=== PATIENT | female | born 1985 | race Caucasian/White ===

== ENCOUNTER 2018-03-26 07:34 | Day surgery (SDC) | payer BC ==
[2018-03-24 15:37] LABS: Absolute Lymphocytes (CBC) 2.1 K/uL (0.7-4.9); Absolute Monocytes 0.5 K/uL (0.1-1.3); Absolute Neutrophil 4.9 K/uL (1.8-8.0); Basophils % 0.5 % (0-1.3); Eosinophils % 1.6 % (0-4.4); Hematocrit 39.3 % (36.0-45.0); Lymphocytes % 27.2 % (15.3-44.8); MCH 28.4 pg (27.0-35.0); MCV 85.4 fL (80-100); MPV 7.8 fL (7.6-11.3); Monocytes % 6.5 % (3.3-12.3)
[2018-03-24 15:52] LABS: BUN Blood Urea Nitrogen 13 mg/dL (7-18); Bicarbonate 24 mmol/L (21-32); Glucose Level 82 mg/dL (74-106); Potassium 4.3 mmol/L (3.5-5.1); Sodium Level 141 mmol/L (136-145)
[2018-03-26] MEDS ORDERED: GLYCOPYRROLATE 0.2 MG/ML SYR ONE (07:46)
[2018-03-26] MEDS ORDERED: MIDAZOLAM HCL 2 MG/2 ML INJ ONE (07:46)
[2018-03-26] MEDS ORDERED: PROPOFOL 200 MG/20 ML VIAL IV ONE (07:46)
[2018-03-26] MEDS ORDERED: LIDOCAINE 2% MPF 5 ML VIAL ONE (07:46)
[2018-03-26] MEDS ORDERED: FENTANYL CITR 250 MCG/5 ML ONE (07:47)
[2018-03-26] MEDS ORDERED: ROCURONIUM 50 MG/5 ML VIAL IV ONE (07:48)
[2018-03-26 07:56] LABS: Specific Gravity >= 1.030 (1.005-1.030)
[2018-03-26] MEDS ORDERED: CEFOXITIN/SWI 1gm 1 GM/10 ML SYR ONE (08:09)
[2018-03-26] MEDS ORDERED: Ringers Lactate 1,000 ML IV ONE (08:09)
[2018-03-26] MEDS: BUPIVACAINE 0.25% PF 10 ML VIAL ONE ×2 (08:42→09:24)
[2018-03-26] MEDS ORDERED: BUPIVACAINE 0.5% PF 10 ML VIAL ONE (08:44)
[2018-03-26] MEDS: MEPERIDINE HCL 50 MG/ML AMP ONE ×2 (10:16→10:24)
[2018-03-26] MEDS ORDERED: MEPERIDINE HCL 50 MG/ML AMP ONE (10:40)
[2018-03-26] MEDS ORDERED: HYDROCODONE/APAP 7.5/325 MG TAB ONE (11:18)
--- NOTE | 2018-03-26 16:25 | DS ---
Date of Discharge: 03/26/2018 Discharge Note: The patient will go to Day Surgery and home when stable. Disposition: Home. Condition: Stable. Discharge Instructions: Resume home medications and diet. Activity as tolerated. No heavy lifting. Remove outer dressing in 2 days. Shower. Keep wound clean and dry. Keep Steri-Strips on at all t imes. Follow up in 1 week. Call for appointment. Tylenol No. 3 one tablet p.o. q.4 p.r.n. pain. /MODL Voice ID: [id number] Report ID: [id number]
--- NOTE | 2018-03-26 16:25 | OP ---
Date of Procedure: 03/26/2018 Surgeon: Freedom Chanel MD Sill Worker: YVONNE Duffy. Preoperative Diagnoses: Chronic cholecystitis and biliary dyskinesia. Postoperative Diagnoses: Chronic cholecystitis and biliary dyskinesia. Procedure: Laparoscopic cholecystectomy. Estimated Blood Loss: Minimal. Specimen: Gallbladder. Finding: As above. Anesthesia: General. Complications: None. Disposition: The patient tolerated the procedure in stable condition, taken to Recovery in good gene ral condition. Procedure In Detail: The patient was brought to the OR and placed in supine position. General anest hesia begun. The patient was prepped and draped in usual sterile fashion. Marcaine 0.5% was infiltr ated locally. A 15-blade was used to make a 1 cm supraumbilical midline incision. Subcutaneous tiss ue divided. Fascia was identified and divided. A #1 Vicryl stay suture was placed. Peritoneal cavi ty was entered with a sharp and blunt dissection. A 12 mm trocar was placed into the peritoneal cavi ty under direct vision. Pneumoperitoneum was established and then three 5-mm trocars were placed, 1 in the epigastrium just to the right of midline and 2 in the right subcostal region. Laparoscopy rev ealed chronic inflammation of the gallbladder. Fundus retracted superiorly. Infundibulum was identi fied and retracted inferolaterally. Cystic duct and cystic artery were clearly identified with blunt dissection. Clips placed. Both structures were divided. Cautery was used to remove the gallbladde r from the liver bed. Bleeding on the liver bed was controlled with cautery. The gallbladder was re trieved through the umbilicus via an EndoCatch bag. Right upper quadrant examined. No evidence of b leeding or bile leakage appreciated. Subsequently, all trocars were removed under direct vision. St ay sutures were tied to each other to reapproximate the fascial defect. The subcutaneous wounds were irrigated. Bleeding controlled with cautery. 3-0 chromic used to approximate the subcutaneous tiss ue and close the skin. Sterile dressing was applied. The patient was awakened and taken to Recovery in good general condition. /MODL Voice ID: [id number] Report ID: [id number]
== END 2018-03-26 11:59 | disposition home or self-care (01) ==
LOC: OR 07:34
PROVIDERS: ATTEND Surgery
PROC: 0FT44ZZ Resection of Gallbladder, Percutaneous Endoscopic Approach (ICD-10-PCS; principal; 2018-03-26 09:00)
DX: K81.1 Chronic cholecystitis (principal); K82.8 Other specified diseases of gallbladder; Z91.048 Other nonmedicinal substance allergy status
CPT/HCPCS: 36415; 80048; 81025; 85025; 88304; J2175; J2250

== ENCOUNTER 2023-08-06 06:24 | Day surgery (SDC) | payer BC, OTHER ==
[2023-08-06] MEDS: Ringers Lactate 1,000 ML IV ONE (06:55)
[2023-08-06] MEDS ORDERED: propofoL 200 MG/20 ML VIAL IV ONE (07:22)
[2023-08-06] MEDS ORDERED: LIDOCAINE 1% MPF 5 ML VIAL ONE (07:22)
[2023-08-06 09:52] VITALS: BP 97/66; TEMP 97.1; O2SAT 100
== END 2023-08-06 09:21 | disposition home or self-care (01) ==
LOC: OR 06:24
PROVIDERS: ATTEND Internal Medicine Gastroenterology
PROC: 0DB68ZX Excision of Stomach, Via Natural or Artificial Opening Endoscopic, Diagnostic (ICD-10-PCS; 2023-08-06)
PROC: 0DB88ZX Excision of Small Intestine, Via Natural or Artificial Opening Endoscopic, Diagnostic (ICD-10-PCS; 2023-08-06)
PROC: 0DB78ZX Excision of Stomach, Pylorus, Via Natural or Artificial Opening Endoscopic, Diagnostic (ICD-10-PCS; 2023-08-06)
PROC: 0DBN8ZX Excision of Sigmoid Colon, Via Natural or Artificial Opening Endoscopic, Diagnostic (ICD-10-PCS; principal; 2023-08-06 07:30)
PROC: 0DBL8ZX Excision of Transverse Colon, Via Natural or Artificial Opening Endoscopic, Diagnostic (ICD-10-PCS; 2023-08-06 07:30)
DX: Z12.11 Encounter for screening for malignant neoplasm of colon (principal); R11.2 Nausea with vomiting, unspecified; K64.8 Other hemorrhoids; K21.9 Gastro-esophageal reflux disease without esophagitis; K29.50 Unspecified chronic gastritis without bleeding; R19.7 Diarrhea, unspecified; D12.3 Benign neoplasm of transverse colon
CPT/HCPCS: 45385; 43239; 88304; J2704; J2001; J7120; 88305; 88312

== ENCOUNTER 2023-12-02 20:39 | Emergency (ER) | payer OTHER ==
[2023-12-02] MEDS ORDERED: ONDANSETRON 4 MG/2 ML VIAL ONE (22:04)
[2023-12-02] MEDS ORDERED: NA CHLORIDE 0.9% 1,000 ML ONE (22:05)
[2023-12-02] MEDS ORDERED: MORPHINE 4 MG/ML SYR ONE (22:05)
[2023-12-02] MEDS ORDERED: FAMOTIDINE 20 MG/2 ML VIAL IV ONE (22:05)
[2023-12-02 22:17] LABS: Absolute Eosinophils 0.1 K/uL (0-0.5); Absolute Lymphocytes (CBC) 2.1 K/uL (0.7-4.9); Absolute Monocytes 0.5 K/uL (0.1-1.3); Absolute Neutrophil 5.2 K/uL (1.8-8.0); Basophils % 0.6 % (0-1.3); Eosinophils % 1.4 % (0-4.4); Hematocrit 40.5 % (36.0-45.0); Hemoglobin 13.5 g/dL (12.0-15.0); Lymphocytes % 26.6 % (15.3-44.8); MCH 29.1 pg (27.0-35.0); MCHC 33.4 g/dL (32.0-36.0); MCV 87.1 fL (80-100); MPV 7.2 fL (7.6-11.3); Monocytes % 6.1 % (3.3-12.3); Neutrophils % 65.3 % (41.7-73.7); Platelets 358 thou/uL (152-406); RBC Red Blood Cell Count 4.64 M/uL (3.86-4.86); Red Cell Distribution Width 14.4 % (12.1-15.2)
[2023-12-02 22:38] LABS: Albumin 4.2 g/dL (3.4-5.0); Albumin/Globulin Ratio 1.3 (1.1-1.8); Anion Gap 7.6 mEq/L (5.0-15.0); Bilirubin Total 1.1 mg/dL (0.2-1.0); Globulin 3.3 g/dL (2.3-3.5); Potassium 3.6 mEq/L (3.5-5.1); Protein, Total 7.5 g/dL (6.4-8.2)
[2023-12-03 00:36] LABS: Specific Gravity 1.007 (1.005-1.030); Urine Bilirubin NEGATIVE (Negative); Urine Blood Negative (Negative); Urine Clarity Clear (Clear); Urine Color Colorless (Yellow); Urine Glucose NEGATIVE (Negative); Urine Ketones NEGATIVE (Negative); Urine Microscopic Reflex YN NO UMIC; Urine Nitrite NEGATIVE (Negative); Urine Protein NEGATIVE (Negative); Urine Urobilinogen Normal (Normal); Urine pH 5.5 (5.0-7.0)
--- NOTE | 2023-12-03 01:27 | ER ---
Nurse's Notes [facility] Name: Miranda Snell Age: 38 yrs Sex: Female : 1985 Arrival Date: 12/02/2023 Time: 20:39 Bed 20 Private MD: Diagnosis: Epigastric pain;Nausea Presentation: 12/01 21:16 Chief complaint: Patient states: Pt c/o nausea and diffuse abdominal pain that radiates tl4 into her left flank after eating tater tots at noon. Pt states pain is getting worse. Coronavirus screen: At this time, the client does not indicate any symptoms associated with coronavirus-19. Ebola Screen: No symptoms or risks identified at this time. Initial Sepsis Screen: Does the patient meet any 2 criteria? No. Patient's initial sepsis screen is negative. Does the patient have a suspected source of infection? No. Patient's initial sepsis screen is negative. Risk Assessment: Do you want to hurt yourself or someone else? Patient reports no desire to harm self or others. Onset of symptoms was December 02, 2023 at 12:00. 21:16 Method Of Arrival: Ambulatory tl4 21:16 Acuity: KAMI 3 tl4 Triage Assessment: 21:19 General: Appears uncomfortable, ill, Behavior is cooperative. Pain: Complains of pain tl4 in back and abdomen. EENT: No signs and/or symptoms were reported regarding the EENT system. Neuro: Level of Consciousness is awake, alert, obeys commands, Oriented to person, place, time, situation. Cardiovascular: Capillary refill < 3 seconds Patient's skin is warm and dry. Respiratory: Airway is patent Respiratory effort is even, unlabored, Respiratory pattern is regular, symmetrical, Breath sounds are clear bilaterally. GI: Reports lower abdominal pain, upper abdominal pain, nausea. : No signs and/or symptoms were reported regarding the genitourinary system. Derm: No signs and/or symptoms reported regarding the dermatologic system. Musculoskeletal: No signs and/or symptoms reported regarding the musculoskeletal system. Historical: - Allergies: 21:18 No Known Allergies; tl4 - Home Meds: 21:18 [place] Thyroid Oral [Active]; tl4 - PMHx: 21:18 Hypothyroidism; tl4 - Immunization history:: Adult Immunizations unknown. - Infectious Disease History:: Denies. - Social history:: Smoking status: Patient denies any tobacco usage or history of. Screenin/03 00:30 [facility] ED Fall Risk Assessment (Adult) History of falling in the last 3 months, jb4 including since admission No falls in past 3 months (0 pts) Confusion or Disorientation No (0 pts) Intoxicated or Sedated No (0 pts) Impaired Gait No (0 pts) Mobility Assist Device Used No (0 pt) Altered Elimination No (0 pt) Score/Fall Risk Level 0 - 2 = Low Risk Oriented to surroundings, Maintained a safe environment. Abuse screen: Denies threats or abuse. Nutritional screening: No deficits noted. Tuberculosis screening: No symptoms or risk factors identified. Assessment: 12/01 21:30 General: Appears in no apparent distress. uncomfortable, Behavior is calm, cooperative, jb4 appropriate for age. Pain: Complains of pain in right upper quadrant and left upper quadrant Pain does not radiate. Pain currently is 9 out of 10 on a pain scale. Neuro: Level of Consciousness is awake, alert, obeys commands, Oriented to person, place, time, situation. Cardiovascular: Patient's skin is warm and dry. Respiratory: Airway is patent Respiratory effort is even, unlabored, Respiratory pattern is regular, symmetrical. GI: Abdomen is flat, non-distended, Reports upper abdominal pain, nausea. : No signs and/or symptoms were reported regarding the genitourinary system. EENT: No signs and/or symptoms were reported regarding the EENT system. Derm: Skin is intact, Skin is pink, warm \T\ dry. 22:41 Reassessment: Patient appears in no apparent distress at this time. Patient and/or jb4 family updated on plan of care and expected duration. Pain level reassessed. Patient is alert, oriented x 3, equal unlabored respirations, skin warm/dry/pink. 12/02 00:00 Reassessment: Patient appears in no apparent distress at this time. Patient and/or jb4 family updated on plan of care and expected duration. Pain level reassessed. Patient is alert, oriented x 3, equal unlabored respirations, skin warm/dry/pink. 01:00 Reassessment: Patient appears in no apparent distress at this time. Patient and/or jb4 family updated on plan of care and expected duration. Pain level reassessed. Patient is alert, oriented x 3, equal unlabored respirations, skin warm/dry/pink. 02:03 Reassessment: Patient appears in no apparent distress at this time. Patient and/or jb4 family updated on plan of care and expected duration. Pain level reassessed. Patient is alert, oriented x 3, equal unlabored respirations, skin warm/dry/pink. Vital Signs: 12/01 21:16 BP 125 / 72; Pulse 75; Resp 16; Temp 99.1; Pulse Ox 100% on R/A; Weight 77.11 kg; tl4 Height 5 ft. 6 in. ; Pain 9/10; 12/02 00:30 BP 97 / 58; Pulse 67; Resp 16; Pulse Ox 100% on R/A; jb4 01:30 BP 111 / 68; Pulse 67; Resp 16; Pulse Ox 100% on R/A; jb4 12/01 21:16 Body Mass Index 27.44 (77.11 kg, 167.64 cm) tl4 12/01 21:16 Pain Scale: Adult tl4 ED Course: 12/01 20:42 Patient arrived in ED. mr 20:49 Chino Delgado PA is PHCP. cp 20:49 Satnam Louis MD is Attending Physician. cp 21:18 Triage completed. tl4 21:20 Arm band placed on right wrist. tl4 22:00 Initial lab(s) drawn, by dc, sent to lab. Inserted saline lock: 20 gauge in right jb4 antecubital area, using aseptic technique. Blood collected. 22:16 Vikas Marcial, RN is Primary Nurse. jb4 22:59 XRAY Chest (1 view) In Process Unspecified. EDMS 12/02 00:31 CT Abd/Pelvis - IV Contrast Only In Process Unspecified. EDMS 01:25 Wesly Pena MD is Referral Physician. cp 02:05 Patient has correct armband on for positive identification. Bed in low position. Call jb4 light in reach. Side rails up X 1. Provided Education on: discharge instructions. 02:05 No provider procedures requiring assistance completed. IV discontinued, intact, jb4 bleeding controlled, No redness/swelling at site. Pressure dressing applied. Administered Medications: 12/01 22:20 Drug: Ondansetron IVP 4 mg IVP once; over 2 minutes Route: IVP; Site: right antecubital;jb4 22:20 Drug: Famotidine IVP 20 mg IVP once; dilute with 10 mL 0.9% NaCl; give over 2 minutes jb4 Route: IVP; Site: right antecubital; 22:20 Drug: morphine IVP or IV 4 mg IVP once over 4 mins Route: IVP; Infused Over: 4 mins; jb4 Site: right antecubital; 22:20 Drug: NS 0.9% IV 1000 ml IV at 1 bolus Per protocol; 1000 mL bolus Route: IV; Rate: 1 jb4 bolus; Site: right antecubital; 12/02 02:02 Drug: GI Cocktail without - (Maalox PO 30 ml, Lidocaine Mucous Membrane 2 % 15 jb4 ml) PO once Route: PO; 02:03 Drug: morphine IVP or IV 4 mg IVP once over 4 mins Route: IVP; Infused Over: 4 mins; jb4 Site: right antecubital; Outcome: 01:26 Discharge ordered by MD. carr 02:05 Discharged to home ambulatory, with family, jb4 02:05 Condition: stable 02:05 Discharge instructions given to patient, Instructed on discharge instructions, follow up and referral plans. medication usage, Demonstrated understanding of instructions, follow-up care, medications, Prescriptions given X 3, 02:06 Patient left the ED. jb4 Signatures: Dispatcher [employer] Linda Santiago, Chino Ruiz PA PA cp Bryson, James, SURYA RN jb4 Suraj Lai RN RN tl4
--- NOTE | 2023-12-03 01:27 | EDPHYS ---
Physician Documentation [facility] Name: Miranda Snell Age: 38 yrs Sex: Female : 1985 Arrival Date: 12/02/2023 Time: 20:39 Bed 20 Private MD: ED Physician Satnam Louis HPI: 12/01 22:00 This 38 yrs old Female presents to ER via Ambulatory with complaints of Abdominal Pain, cp Nausea. 22:00 The patient presents with abdominal pain in the epigastric area, in the upper abdomen. cp Onset: The symptoms/episode began/occurred this afternoon pain started after eating. The symptoms radiate to back. Associated signs and symptoms: Pertinent positives: nausea. 22:00 Severity of pain: in the emergency department the pain is actually worse markedly. cp Historical: - Allergies: 21:18 No Known Allergies; tl4 - Home Meds: 21:18 [place] Thyroid Oral [Active]; tl4 - PMHx: 21:18 Hypothyroidism; tl4 - Immunization history:: Adult Immunizations unknown. - Infectious Disease History:: Denies. - Social history:: Smoking status: Patient denies any tobacco usage or history of. ROS: 22:05 Constitutional: Negative for body aches, chills, fever, cp 22:05 Eyes: Negative for injury, pain, redness, and discharge, cp 22:05 Respiratory: Negative for cough, shortness of breath, wheezing, 22:05 Abdomen/GI: Positive for abdominal pain, nausea, Negative for vomiting, diarrhea, constipation, 22:05 ENT: Negative for ear pain, sore throat, difficulty swallowing, difficulty handling cp secretions, 22:05 Cardiovascular: Positive for chest pain, Negative for palpitations, 22:05 Back: Positive for radiated pain, 22:05 All other systems are negative, cp Exam: 22:10 Head/Face: Normocephalic, atraumatic. cp 22:10 Constitutional: The patient appears in no acute distress, alert, awake, non-toxic, well developed, well nourished, uncomfortable, appears in pain 22:10 Eyes: Periorbital structures: appear normal, Conjunctiva: normal, no exudate, no injection, Sclera: no appreciated abnormality, Lids and lashes: appear normal, bilaterally, 22:10 ENT: External ear(s): are unremarkable, Nose: is normal, Mouth: Lips: moist, Oral mucosa: pink and intact, moist, Posterior pharynx: Airway: no evidence of obstruction, patent, 22:10 Chest/axilla: Inspection: normal, cp 22:10 Cardiovascular: Rate: normal, Rhythm: regular, 22:10 Respiratory: the patient does not display signs of respiratory distress, Respirations: normal, no use of accessory muscles, no retractions, labored breathing, is not present, Breath sounds: are clear throughout, no decreased breath sounds, no stridor, no wheezing, 22:10 Abdomen/GI: Inspection: abdomen appears normal, Bowel sounds: active, all quadrants, Palpation: soft, in all quadrants, severe abdominal tenderness, in the epigastric area, 22:10 Back: pain, that is moderate, CVA tenderness, is absent, 22:10 Neuro: Orientation: to person, place \T\ time. Mentation: is normal, Gait: is steady, Vital Signs: 21:16 BP 125 / 72; Pulse 75; Resp 16; Temp 99.1; Pulse Ox 100% on R/A; Weight 77.11 kg; tl4 Height 5 ft. 6 in. ; Pain /; 12/02 00:30 BP 97 / 58; Pulse 67; Resp 16; Pulse Ox 100% on R/A; jb4 01:30 BP 111 / 68; Pulse 67; Resp 16; Pulse Ox 100% on R/A; jb4 12/01 21:16 Body Mass Index 27.44 (77.11 kg, 167.64 cm) 4 12/01 21:16 Pain Scale: Adult tl4 MDM: 12/01 21:23 Patient medically screened. cp 12/02 01:25 Data reviewed: vital signs, nurses notes, lab test result(s), radiologic studies, CT cp scan, and as a result, I will discharge patient. 01:25 Differential diagnosis: non-specific abd pain, pancreatitis, Peptic Ulcer Disease, cp Perf. Duodenal Ulcer, Perf. Gastric Ulcer, Pyelonephritis, Ureterolithiasis, urinary tract infection, choledocholithiasis. I considered the following discharge prescriptions or medication management in the emergency department Medications were administered in the Emergency Department. See MAR. Special discussion: Based on the patient's Hx, exam, and Dx evaluation, there is no indication for emergent surgery or inpatient Tx. It is understood by the patient/guardian that if the Sx's persist or worsen they need to return immediately for re-evaluation. 12/01 21:04 Order name: CBC with Diff; Complete Time: 00:46 cp 12/02 00:46 Interpretation: Normal except: MPV 7.2. cp 12/01 21:04 Order name: CMP; Complete Time: 00:46 cp 12/02 00:46 Interpretation: Normal except: CL 109; BILIT 1.1. cp 12/01 21:04 Order name: Lipase; Complete Time: 00:46 cp 12/01 21:04 Order name: Urinalysis w/ reflexes; Complete Time: 00:46 cp 12/01 21:59 Order name: XRAY Chest (1 view) cp 12/01 23:43 Order name: CT Abd/Pelvis - IV Contrast Only cp 12/01 21:04 Order name: IV Saline Lock; Complete Time: 22:06 cp 12/01 21:04 Order name: Labs collected and sent; Complete Time: 22:06 cp 12/02 01:22 Order name: PO challenge; Complete Time: 02:01 cp Administered Medications: 12/01 22:20 Drug: Ondansetron IVP 4 mg IVP once; over 2 minutes Route: IVP; Site: right antecubital;jb4 22:20 Drug: Famotidine IVP 20 mg IVP once; dilute with 10 mL 0.9% NaCl; give over 2 minutes jb4 Route: IVP; Site: right antecubital; 22:20 Drug: morphine IVP or IV 4 mg IVP once over 4 mins Route: IVP; Infused Over: 4 mins; jb4 Site: right antecubital; 22:20 Drug: NS 0.9% IV 1000 ml IV at 1 bolus Per protocol; 1000 mL bolus Route: IV; Rate: 1 jb4 bolus; Site: right antecubital; 12/02 02:02 Drug: GI Cocktail without - (Maalox PO 30 ml, Lidocaine Mucous Membrane 2 % 15 jb4 ml) PO once Route: PO; 02:03 Drug: morphine IVP or IV 4 mg IVP once over 4 mins Route: IVP; Infused Over: 4 mins; jb4 Site: right antecubital; Disposition: 20:55 Co-signature as Attending Physician, Satnam Louis MD I agree with the assessment sp4 and plan of care. I reviewed the patient's care provided by the Advanced Practice Provider and agree with the diagnosis and treatment plan. Disposition Summary: 12/03/23 01:26 Discharge Ordered Notes: Location: Home cp Problem: new cp Symptoms: have improved cp Condition: Stable cp Diagnosis - Epigastric pain cp - Nausea cp Followup: cp - With: Wesly Pena MD - When: 2 - 3 days - Reason: Worsening of condition Discharge Instructions: - Discharge Summary Sheet cp - Abdominal Pain, Adult cp - Gastritis, Adult cp - Nausea, Adult cp Forms: - Medication Reconciliation Form cp - Antibiotic Education cp - Prescription Opioid Use cp - Patient Portal Instructions cp - Leadership Thank You Letter cp Prescriptions: - Carafate 1 gram Oral tablet - take 1 tablet ORAL route 4 times per day take on an empty stomach, beginning on cp waking and last dose at bedtime. dissolve tablet in 6 ounces warm water prior to ingestion; 100 tablet; Refills: 0, Product Selection Permitted - Protonix 40 mg Oral Tablet - take 1 tablet ORAL route once daily; 30 tablet; Refills: 0, Product Selection cp Permitted - Zofran 4 mg Oral Tablet - take 1 tablet ORAL route every 12 hours As needed; 20 tablet; Refills: 0, cp Product Selection Permitted Signatures: Dispatcher [employer] EDMS Chino Delgado PA PA cp Bryson, James, RN RN jb4 Satnam Louis MD MD sp4 Suraj Lai RN RN tl4 Corrections: (The following items were deleted from the chart) 12/01 23:44 23:43 Abdomen Pelvis W Con+CT.RAD.BRZ ordered. EDMS EDMS 12/02 00:14 12/01 21:05 Test, Urine+UC.LAB.BRZ ordered. EDMS EDMS
[2023-12-03] MEDS ORDERED: LIDOCAINE VISCOUS 2% 10ML ORAL SOLN ONE (01:39)
[2023-12-03] MEDS ORDERED: MAGNES/ALUMIN/SIMET 30ML UCUP ONE (01:39)
[2023-12-03] MEDS ORDERED: MORPHINE 4 MG/ML SYR ONE (01:39)
[2023-12-03 02:38] VITALS: BP 111/68; TEMP 99.1; O2SAT 100
--- NOTE | 2023-12-03 10:14 | RAD REPORT ---
EXAM DESCRIPTION: RAD - Chest Single View - 12/02/2023 10:55 pm CLINICAL HISTORY: Upper abdomen pain COMPARISON: None FINDINGS: Cardiac silhouette is within normal limits. There is no focal parenchymal or pleural disea se. There is no acute osseous process visualized. IMPRESSION: No evidence of acute cardiopulmonary disease. Electronically signed by: Rio Lamb MD 12/02/2023 11:22 PM CDT RP Due to temporary technical issues with the PACS/Fluency reporting system, reports are being signed by the in house radiologist without review as a courtesy to ensure prompt reporting. The interpreting r adiologist is fully responsible for the content of the report.
--- NOTE | 2023-12-03 12:54 | RAD REPORT ---
EXAM DESCRIPTION: CT - Abdomen Pelvis W Contrast - 12/03/2023 6:47 am CLINICAL HISTORY: 38 years Female; ABD PAIN; IV ONLY Bed Name: 20 TECHNIQUE: CT of the abdomen and pelvis with intravenous contrast. All CT scans at this facility use dose modulation, iterative reconstruction, and/or weight based dosi ng when appropriate to reduce radiation dose to as low as reasonably achievable. COMPARISON: None. FINDINGS: Lower thorax: Lung bases are clear Abdomen: Stomach: Within normal limits Liver: No focal lesions. No intrahepatic ductal distention. Gallbladder: Surgically absent. Pancreas: Within normal limits Spleen: Within normal limits Right kidney: No hydronephrosis. No focal lesion. Left kidney: No hydronephrosis. No focal lesion. Adrenal glands: Within normal limits Vascular structures: Mild atherosclerosis of the abdominal aorta and major branches. Nodes: No lymphadenopathy by size criteria Pelvis: Small bowel: No significant distention. Appendix: Within normal limits Colon: No distention or acute pericolonic edema. Moderate stool burden. Peritoneum: No free intraperitoneal fluid or air. Bones: No acute bone findings. Bladder: Unremarkable. Reproductive organs: No acute findings. IMPRESSION: 1. No acute abdominopelvic findings. 2. Moderate stool burden. Electronically signed by: Jasper Campbell MD 12/03/2023 01:12 AM Kutoto[employer] RP [id number] Due to temporary technical issues with the PACS/Fluency reporting system, reports are being signed by the in house radiologist without review as a courtesy to ensure prompt reporting. The interpreting r adiologist is fully responsible for the content of the report.
== END 2023-12-03 02:06 | disposition home or self-care (01) ==
LOC: ER 20:39
DX: R10.13 Epigastric pain (principal); R11.0 Nausea
CPT/HCPCS: 85025; 36415; 81003; 83690; 80053; 74177; 71045; 96375; 96374; 99284; Q9967; J2405; J7030